=== PATIENT | female | born 1955 | race Two or more races ===

== ENCOUNTER 2017-08-23 16:41 | Emergency (ER) | payer OTHER ==
[~2017-08-23] VITALS: Ht 162.6 cm; Wt 93.0 kg
--- NOTE | 2017-08-23 17:05 | NUR ---
BERTIN HERNANDEZ AT BEDSIDE FOR EVAL.
[2017-08-23] MEDS ORDERED: TDAP [DIPH/PERTUSSIS/TET] 0.5 ML VIAL IM ONE (17:33)
[2017-08-23] MEDS: TDAP [DIPH/PERTUSSIS/TET] 0.5 ML VIAL IM ONE (17:36)
--- NOTE | 2017-08-23 19:19 | NUR ---
LAC REPAIR DONE. 5 SUTURES NOTED. WOUND CARE PROVIDED. D/C HOME IN STABLE CONDITION.
[2017-08-23 19:36] VITALS: BP 150/70
--- NOTE | 2017-08-23 19:36 | NUR ---
Patient discharged to home in stable condition. Written and verbal after care instructions given. Patient verbalizes understanding of instruction.
== END 2017-08-23 19:39 | disposition home or self-care (01) ==
LOC: ER 16:43
DX: S61.412A Laceration without foreign body of left hand, initial encounter (principal); I10 Essential (primary) hypertension; K21.9 Gastro-esophageal reflux disease without esophagitis; F32.9 Major depressive disorder, single episode, unspecified; W18.02XA Striking against glass with subsequent fall, initial encounter; Y93.89 Activity, other specified; Y92.090 Kitchen in other non-institutional residence as the place of occurrence of the external cause; Y99.8 Other external cause status
CPT/HCPCS: 12002; 73130; 90471; 90715; 99284; A4606 ×2; A6402 ×2; A6403; Z7610

== ENCOUNTER 2017-09-01 19:31 | Emergency (ER) | payer OTHER ==
[~2017-09-01] VITALS: Ht 160 cm; Wt 95.3 kg
[2017-09-01 19:58] VITALS: BP 173/91
== END 2017-09-01 20:02 | disposition home or self-care (01) ==
LOC: ER 19:35
DX: S61.412D Laceration without foreign body of left hand, subsequent encounter (principal); I25.2 Old myocardial infarction; I10 Essential (primary) hypertension; K21.9 Gastro-esophageal reflux disease without esophagitis; F32.9 Major depressive disorder, single episode, unspecified; Z90.710 Acquired absence of both cervix and uterus; Z90.89 Acquired absence of other organs
CPT/HCPCS: 99281; A4606; A6402; Z7610; Z7502